=== PATIENT | male | born 1990 | race Caucasian/White ===

== ENCOUNTER 2016-11-11 12:58 | Emergency (ER) | payer SELFPAY ==
[~2016-11-11 12:58] MED LIST: ATIVAN0.5 MG PO; ATIVAN1 M1 PO; CATAFLAM50 MG PO; MULTIVITAMIN1 TAB PO; RISPERDAL1 MG PO; SILVADENE20 GM TP; TOPROL XL25 MG PO; VITAMIN B12; XANAX0.5 MG PO; ZOFRAN ODT4 MG/UDTAB PO
[2016-11-11] MEDS ORDERED: OMEPRAZOLE20 M4 PO (13:25)
== END 2016-11-11 14:15 ==
LOC: EDMED 12:58
DX: R10.13 Epigastric pain (principal)